=== PATIENT | male | born 1980 | race Caucasian/White ===

== ENCOUNTER 2018-11-28 10:05 | Emergency (ER) | payer MEDICAID, OTHER ==
[~2018-11-28] VITALS: Ht 175.3 cm; Wt 72.0 kg
--- NOTE | 2018-11-28 10:54 | NUR ---
pt reports 2/10 chest pain
[2018-11-28 11:20] LABS: BASOPHILS # (AUTO) 0.1 X10'3 (0-0.2); BASOPHILS % (AUTO) 1.1 % (0-1); EOSINOPHILS # (AUTO) 1.1 X10'3 (0-0.9); EOSINOPHILS % (AUTO) 14.1 % (0-6); HEMATOCRIT 45.6 % (42.0-52.0); HEMOGLOBIN 15.3 g/dl (14.0-17.9); LYMPHOCYTES # (AUTO) 2.1 X10'3 (1.1-4.8); LYMPHOCYTES % (AUTO) 27.1 % (21-51); MEAN CORPUSCULAR HEMOGLOBIN 30.2 PG (27.0-31.0); MEAN CORPUSCULAR HGB CONC 33.7 g/dL (33.0-36.5); MEAN CORPUSCULAR VOLUME 89.8 FL (78-98); MEAN PLATELET VOLUME 7.2 FL (7.4-10.4); MONOCYTES # (AUTO) 0.4 X10'3 (0-0.9); MONOCYTES % (AUTO) 5.3 % (2-12); NEUTROPHILS # (AUTO) 4.1 X10'3 (1.8-7.7); NEUTROPHILS % (AUTO) 52.4 % (42-75); PLATELET COUNT 348 X10'3 (140-440); RED BLOOD COUNT 5.08 X10'6 (4.70-6.10); RED CELL DISTRIBUTION WIDTH 13.1 % (11.5-14.5); WHITE BLOOD COUNT 7.9 X10'3 (4.5-11.0)
[2018-11-28 11:21] LABS: PARTIAL THROMBOPLASTIN TIME 27 SECONDS (22-32)
[2018-11-28 11:32] LABS: ALANINE AMINOTRANSFERASE 97 U/L (12-78); ALBUMIN 3.4 G/DL (3.4-5.0); ALKALINE PHOSPHATASE 94 IU/L (46-116); ANION GAP 9 (8-16); ASPARTATE AMINO TRANSFERASE 39 U/L (10-37); BILIRUBIN,TOTAL 0.3 MG/DL (0.1-1.0); BLOOD UREA NITROGEN 14 MG/DL (7-18); BUN/CREATININE RATIO 18.2 (5.4-32.0); CALCIUM 8.7 MG/DL (8.5-10.1); CHLORIDE 108 MMOL/L (99-107); CREATININE 0.77 MG/DL (0.60-1.10); GLUCOSE 123 MG/DL (70-104); SODIUM 141 MMOL/L (135-145); TOTAL CARBON DIOXIDE 24.5 MMOL/L (24-32); TOTAL PROTEIN 6.7 G/DL (6.4-8.2); eGFR > 90 ML/MIN
[2018-11-28] MEDS ORDERED: albuterol 2.5 MG/3 ML nebule NEB ONE (11:45)
[2018-11-28] MEDS ORDERED: ALBU6.7H9 INH (13:24)
[2018-11-28 13:36] VITALS: BP 121/82
== END 2018-11-28 13:37 | disposition home or self-care (01) ==
LOC: ER 10:06
DX: J40 Bronchitis, not specified as acute or chronic (principal); R07.89 Other chest pain; F15.90 Other stimulant use, unspecified, uncomplicated; Z87.891 Personal history of nicotine dependence; Z59.0 Homelessness; Z56.0 Unemployment, unspecified
CPT/HCPCS: 36415; 71045; 80053; 84484; 85025; 85610; 85730; 93005; 94640; 94760; 99284

== ENCOUNTER 2019-01-13 05:13 | Inpatient (IN) | payer MEDICAID, OTHER ==
[~2019-01-13] VITALS: Ht 175.3 cm; Wt 66.0 kg
[~2019-01-13 05:13] MED LIST: ALBU6.7H9 INH
[2019-01-13] MEDS ORDERED: normal saline 1000ML IV soln IVB ONE (05:30)
[2019-01-13] MEDS ORDERED: ipratropium/albuterol 3ml nebule NEB ONE (05:30)
[2019-01-13] MEDS ORDERED: methylPREDNISolone sod succ 125mg/2ml vial IV ONE (05:30)
[2019-01-13] MEDS ORDERED: LORazepam 2 mg/ml vial IV ONE (05:45)
[2019-01-13 06:06] LABS: ABG BASE EXCESS -2.2 mmol/L (-2.0-3.0); ABG HCO3 24.2 mmol/L (22.0-26.0); ABG PCO2 (T) 45.6 mmHg (35.0-45.0); ABG PH (T) 7.339 (7.350-7.450); ABG PO2 (T) 209.9 mmHg (83-108); FCOHb 0.6 % (0.5-1.5); FLOW 8 L/min; FMetHb 0.1 % (0.3-1.12); FO2Hb 98.3 % (94-100); PATIENT TEMPERATURE 36.1; RESPIRATORY RATE (OBSERVED) 26 b/min; TOTAL HEMOGLOBIN 16.4 G/dl (14.0-17.9)
[2019-01-13 06:08] LABS: BASOPHILS # (AUTO) 0.2 X10'3 (0-0.2); BASOPHILS % (AUTO) 1.3 % (0-1); EOSINOPHILS # (AUTO) 1.3 X10'3 (0-0.9); EOSINOPHILS % (AUTO) 11.2 % (0-6); HEMATOCRIT 45.7 % (42.0-52.0); HEMOGLOBIN 15.6 g/dl (14.0-17.9); LYMPHOCYTES # (AUTO) 3.1 X10'3 (1.1-4.8); LYMPHOCYTES % (AUTO) 26.4 % (21-51); MEAN CORPUSCULAR HEMOGLOBIN 30.4 PG (27.0-31.0); MEAN CORPUSCULAR HGB CONC 34.1 g/dL (33.0-36.5); MEAN PLATELET VOLUME 6.9 FL (7.4-10.4); MONOCYTES # (AUTO) 0.8 X10'3 (0-0.9); MONOCYTES % (AUTO) 6.6 % (2-12); NEUTROPHILS # (AUTO) 6.3 X10'3 (1.8-7.7); NEUTROPHILS % (AUTO) 54.5 % (42-75); PLATELET COUNT 314 X10'3 (140-440); RED BLOOD COUNT 5.14 X10'6 (4.70-6.10); RED CELL DISTRIBUTION WIDTH 12.7 % (11.5-14.5); WHITE BLOOD COUNT 11.6 X10'3 (4.5-11.0)
[2019-01-13 06:19] LABS: PARTIAL THROMBOPLASTIN TIME 28 SECONDS (22-32)
[2019-01-13 06:21] LABS: ALANINE AMINOTRANSFERASE 68 U/L (12-78); ALBUMIN 3.7 G/DL (3.4-5.0); ALKALINE PHOSPHATASE 119 IU/L (46-116); ANION GAP 11 (8-16); ASPARTATE AMINO TRANSFERASE 34 U/L (10-37); BILIRUBIN,TOTAL 0.6 MG/DL (0.1-1.0); BLOOD UREA NITROGEN 24 MG/DL (7-18); CALCIUM 8.5 MG/DL (8.5-10.1); CHLORIDE 105 MMOL/L (99-107); CREATININE 0.96 MG/DL (0.60-1.10); GLUCOSE 134 MG/DL (70-104); POTASSIUM 3.7 MMOL/L (3.5-5.1); SODIUM 142 MMOL/L (135-145); TOTAL CARBON DIOXIDE 26.1 MMOL/L (24-32); TOTAL PROTEIN 7.5 G/DL (6.4-8.2); eGFR 87 ML/MIN
[2019-01-13] MEDS ORDERED: acetaminophen 325mg tablet PO PRN (09:05)
[2019-01-13] MEDS ORDERED: ipratropium/albuterol 3ml nebule NEB PRN (09:05)
[2019-01-13] MEDS ORDERED: CefTRIAXone/D5W-Rocephin 1gm 50 ML IV ONE (09:05)
[2019-01-13] MEDS ORDERED: ondansetron/PF 4mg/2ml inj IV PRN (09:05)
[2019-01-13] MEDS ORDERED: magnesium hydroxide 30ml (MOM) UD suspension PO PRN (09:05)
[2019-01-13] MEDS ORDERED: mag hydrox/Alum hydrox/simeth 30ml oral suspension PO PRN (09:05)
--- NOTE | 2019-01-13 09:05 | NUR ---
pt is maintaining 02 sat of 96% on 3L NC
[2019-01-13] MEDS: normal saline 1000ml 1,000 ML IV SCH ×2 (09:25→22:47)
[2019-01-13 11:00] VITALS: BP 104/65
[2019-01-13] MEDS: ipratropium/albuterol 3ml nebule NEB SCH ×4 (11:02→23:15)
[2019-01-13] MEDS ORDERED: pneumococcal 23-VAL P-sac vacc 25 mcg/0.5ml vial IMVAC ONE (11:20)
[2019-01-13 11:46] LABS: URINE AMPHETAMINE SCREEN POSITIVE (Neg); URINE BARBITUATE SCREEN NEGATIVE (Neg); URINE BENZODIAZEPINES SCREEN NEGATIVE (Neg); URINE CANNABINOID SCREEN NEGATIVE (Neg); URINE COCAINE SCREEN NEGATIVE (Neg); URINE METHADONE SCREEN NEGATIVE (Neg); URINE OPIATE SCREEN POSITIVE (Neg); URINE PHENCYCLIDINE SCREEN NEGATIVE (Neg)
[2019-01-13] MEDS ORDERED: NO HOME MEDS (12:08)
[2019-01-13] MEDS: methylPREDNISolone sod succ 125mg/2ml vial IV SCH ×2 (13:30→22:49)
--- NOTE | 2019-01-13 15:03 | NUR ---
Malnutrition consult: Pt with no reliable wt hx and current documented wt is pt stated. Pt currently on regular diet documented with 100% PO intake meeting nutrient needs. No significant decrease in muscle strength and no edema. Pt currently does not meet criteria for malnutrition. Will continue to follow. Addendum: 01/13/19 at [address] Amended: Links added.
[2019-01-13 18:00] VITALS: BP 121/85
--- NOTE | 2019-01-13 18:20 | NUR ---
Problems reprioritized. Patient report given, questions answered & plan of care reviewed with Rhianna.
[2019-01-13] MEDS ORDERED: hydrOXYzine 25 MG tablet PO ONE (19:55)
[2019-01-13 22:00] VITALS: BP 133/67
[2019-01-13] MEDS: heparin, porcine 5000 units/ml vial SQ SCH (22:48)
--- NOTE | 2019-01-13 23:50 | NUR ---
Patient is homeless and is concerned about his belongings. Patient states his tent is behind [address] and is worry that [employer] wound throw away his belongings. Patient was thinking of leaving AMA. Nurse talked to patient and patient agreed that if he can get a hold of his girlfriend to make sure his belonging is safe he would stay. Nurse was able to locate his girlfriend's cell phone number and dial it to the patient.
[2019-01-14 02:00] VITALS: BP 117/64
[2019-01-14] MEDS: methylPREDNISolone sod succ 125mg/2ml vial IV SCH ×2 (02:20→08:53)
[2019-01-14] MEDS: ipratropium/albuterol 3ml nebule NEB SCH ×3 (02:49→11:41)
[2019-01-14 04:57] LABS: ALBUMIN 3.4 G/DL (3.4-5.0); ANION GAP 12 (8-16); BLOOD UREA NITROGEN 20 MG/DL (7-18); CALCIUM 9.3 MG/DL (8.5-10.1); CHLORIDE 105 MMOL/L (99-107); CREATININE 0.87 MG/DL (0.60-1.10); GLUCOSE 139 MG/DL (70-104); POTASSIUM 3.9 MMOL/L (3.5-5.1); SODIUM 141 MMOL/L (135-145); TOTAL CARBON DIOXIDE 23.9 MMOL/L (24-32); eGFR > 90 ML/MIN
[2019-01-14 04:59] LABS: BASOPHILS % (AUTO) 0.3 % (0-1); EOSINOPHILS % (AUTO) 0 % (0-6); HEMATOCRIT 43.6 % (42.0-52.0); LYMPHOCYTES # (AUTO) 0.9 X10'3 (1.1-4.8); LYMPHOCYTES % (AUTO) 8.8 % (21-51); MEAN CORPUSCULAR HEMOGLOBIN 30.5 PG (27.0-31.0); MEAN CORPUSCULAR HGB CONC 34.5 g/dL (33.0-36.5); MEAN CORPUSCULAR VOLUME 88.4 FL (78-98); MEAN PLATELET VOLUME 7.4 FL (7.4-10.4); MONOCYTES # (AUTO) 0.1 X10'3 (0-0.9); MONOCYTES % (AUTO) 1.1 % (2-12); NEUTROPHILS # (AUTO) 8.7 X10'3 (1.8-7.7); NEUTROPHILS % (AUTO) 89.8 % (42-75); PLATELET COUNT 333 X10'3 (140-440); RED BLOOD COUNT 4.93 X10'6 (4.70-6.10); WHITE BLOOD COUNT 9.7 X10'3 (4.5-11.0)
[2019-01-14] MEDS: normal saline 1000ml 1,000 ML IV SCH (05:47)
--- NOTE | 2019-01-14 06:00 | NUR ---
Patient in room PCU 3013. I have received report from Rhianna and had the opportunity to ask questions and assume patient care.
[2019-01-14 07:00] VITALS: BP 128/76
[2019-01-14] MEDS ORDERED: CefTRIAXone/D5W-Rocephin 1gm 50 ML IV SCH (08:00)
[2019-01-14] MEDS: heparin, porcine 5000 units/ml vial SQ SCH (08:54)
[2019-01-14 11:00] VITALS: BP 118/74
--- NOTE | 2019-01-14 12:43 | NUR ---
Page sent to Dr. Jerry PAGER ID: [phone] MESSAGE: [phone] Harriett Irvin is requesting to see you, he is talking about leaving AMA. CARMELINA
--- NOTE | 2019-01-14 13:07 | NUR ---
PAGER ID: [phone] MESSAGE: [phone] Harriett Irvin opted not to wait to see you, he is leaving AMA. Risks, benefits and consequences explained to patient. [facility] Naheed [id number]
== END 2019-01-14 13:31 | disposition left against medical advice (07) | DRG 140 ==
LOC: ER 05:13 → ED HOLD 09:04 → PCU 3S 11:30
PROVIDERS: ADMIT Family Medicine; ATTEND Family Medicine
PROC: 3E0234Z Introduction of Serum, Toxoid and Vaccine into Muscle, Percutaneous Approach (ICD-10-PCS; principal; 2019-01-13)
DX: J44.0 Chronic obstructive pulmonary disease with (acute) lower respiratory infection (principal); J96.01 Acute respiratory failure with hypoxia; J44.1 Chronic obstructive pulmonary disease with (acute) exacerbation; J20.9 Acute bronchitis, unspecified; F17.210 Nicotine dependence, cigarettes, uncomplicated; F15.10 Other stimulant abuse, uncomplicated; Z60.2 Problems related to living alone; Z53.29 Procedure and treatment not carried out because of patient's decision for other reasons; F41.9 Anxiety disorder, unspecified; Z59.0 Homelessness; Z23 Encounter for immunization; Z71.6 Tobacco abuse counseling; Z71.51 Drug abuse counseling and surveillance of drug abuser
CPT/HCPCS: 36415; 36600; 71045; 80048; 80053; 80305; 82803; 83880; 84484; 85018; 85025; 85610; 85730; 87081; 90732; 93005; 94640; 94660; 94760; 96361; 96374; 96375; 99285; G0378; J0696; J1644; J2060; J2930; J7030; Z7610

== ENCOUNTER 2020-05-03 08:00 | Emergency (ER) | payer MEDICAID, OTHER ==
[~2020-05-03] VITALS: Ht 175.3 cm; Wt 69.5 kg
[~2020-05-03 08:00] MED LIST changes: -ALBU6.7H9 INH; +NO HOME MEDS
[2020-05-03] MEDS ORDERED: HYDR-3965 PO (08:17)
[2020-05-03] MEDS ORDERED: ONDA4TAB6 PO (08:17)
[2020-05-03] MEDS ORDERED: METR500T PO (08:17)
[2020-05-03] MEDS ORDERED: METH4TAB81 PO (08:17)
[2020-05-03] MEDS ORDERED: AMOX500C2 PO (08:17)
[2020-05-03 08:56] VITALS: BP 122/87
== END 2020-05-03 09:01 | disposition home or self-care (01) ==
LOC: ER 08:01
DX: K02.9 Dental caries, unspecified (principal); K04.7 Periapical abscess without sinus; K08.89 Other specified disorders of teeth and supporting structures; Z79.2 Long term (current) use of antibiotics; Z79.899 Other long term (current) drug therapy; F15.90 Other stimulant use, unspecified, uncomplicated; Z72.89 Other problems related to lifestyle; Z56.0 Unemployment, unspecified; Z59.0 Homelessness
CPT/HCPCS: 99283

== ENCOUNTER 2023-01-15 18:01 | Emergency (ER) | payer MEDICAID ==
[~2023-01-15] VITALS: Ht 175.3 cm; Wt 66.3 kg
[~2023-01-15 18:01] MED LIST changes: +METH4TAB81 PO; +ONDA4TAB6 PO
[2023-01-15 18:08] VITALS: BP 151/90; PULSE 111; RESP 18; TEMP 97.8; O2SAT 98
== END 2023-01-16 02:10 | disposition left against medical advice (07) ==
LOC: ER 18:01
DX: L02.511 Cutaneous abscess of right hand (principal); Z53.21 Procedure and treatment not carried out due to patient leaving prior to being seen by health care provider
CPT/HCPCS: 99281